=== PATIENT | female | born 1935 | race Caucasian/White ===

== ENCOUNTER 2020-10-29 14:15 | Inpatient (IN) | payer MEDICARE, OTHER ==
[~2020-10-29] VITALS: Ht 175.3 cm; Wt 50.5 kg
[2020-10-29] MEDS ORDERED: ASCORBIC ACID PO (20:12)
[2020-10-29] MEDS ORDERED: FERROUS FUMARATE PO ×2 (20:12→20:18)
[2020-10-29] MEDS ORDERED: LASIX TAB 20 MG20 MG PO (20:12)
[2020-10-29] MEDS ORDERED: LAMOTRIGINE100 MG PO (20:13)
[2020-10-29] MEDS ORDERED: METOPROLOL SUCC50 MG PO (20:14)
[2020-10-29] MEDS ORDERED: LEVOTHYROXINE25 MC1 PO (20:14)
[2020-10-29] MEDS ORDERED: ONE DAILY MUL400 MCG PO (20:17)
[2020-10-29] MEDS ORDERED: LUTEIN PO (20:18)
[2020-10-29] MEDS ORDERED: VITAMIN C125 MG PO (20:19)
[2020-10-29 22:06] LABS: HEMOGLOBIN 9.9 gm/dl (12.3-15.3); RED BLOOD COUNT 3.13 M/UL (4.00-5.10); WHITE BLOOD COUNT 10.5 K/UL (4.5-11.0)
[2020-10-30 18:59] LABS: HEMOGLOBIN 9.5 gm/dl (12.3-15.3); RED BLOOD COUNT 2.99 M/UL (4.00-5.10)
[2020-10-31 19:57] LABS: HEMOGLOBIN 7.4 gm/dl (12.3-15.3); RED BLOOD COUNT 2.33 M/UL (4.00-5.10); WHITE BLOOD COUNT 9.9 K/UL (4.5-11.0)
[2020-11-01 11:53] LABS: HEMOGLOBIN 7.2 gm/dl (12.3-15.3); RED BLOOD COUNT 2.25 M/UL (4.00-5.10); WHITE BLOOD COUNT 9.3 K/UL (4.5-11.0)
[2020-11-02 05:52] LABS: RED BLOOD COUNT 2.09 M/UL (4.00-5.10); WHITE BLOOD COUNT 8.5 K/UL (4.5-11.0)
[2020-11-02 06:00] LABS: HEMOGLOBIN 6.6 gm/dl (12.3-15.3)
[2020-11-03 07:58] LABS: WHITE BLOOD COUNT 9.5 K/UL (4.5-11.0)
[2020-11-03 08:03] LABS: HEMOGLOBIN 11.5 gm/dl (12.3-15.3); RED BLOOD COUNT 3.9 M/UL (4.00-5.10)
[2020-11-04 03:29] LABS: HEMOGLOBIN 10.1 gm/dl (12.3-15.3); WHITE BLOOD COUNT 8.4 K/UL (4.5-11.0)
[2020-11-04 03:30] LABS: RED BLOOD COUNT 3.4 M/UL (4.00-5.10)
[2020-11-07 04:23] LABS: HEMOGLOBIN 10.2 gm/dl (12.3-15.3); RED BLOOD COUNT 3.31 M/UL (4.00-5.10); WHITE BLOOD COUNT 8.8 K/UL (4.5-11.0)
[2020-11-09 06:01] LABS: HEMOGLOBIN 10.4 gm/dl (12.3-15.3); RED BLOOD COUNT 3.33 M/UL (4.00-5.10); WHITE BLOOD COUNT 8.6 K/UL (4.5-11.0)
[2020-11-10 06:45] LABS: HEMOGLOBIN 11.1 gm/dl (12.3-15.3); RED BLOOD COUNT 3.54 M/UL (4.00-5.10); WHITE BLOOD COUNT 10.3 K/UL (4.5-11.0)
[2020-11-10] MEDS ORDERED: COLACE100 MG PO (13:21)
[2020-11-10] MEDS ORDERED: DIFLUCAN100 MG PO (13:21)
[2020-11-10] MEDS ORDERED: TYLENOL 8 HOUR650 MG PO (13:21)
[2020-11-10] MEDS ORDERED: MYLANTA MAXIMU355 ML PO (13:21)
[2020-11-10] MEDS ORDERED: NORCO 5-325 TA1 EACH PO (13:21)
--- NOTE | 2020-11-10 13:26 | NUR ---
NOTIFIED DR CLAYTON PER DR HITCHCOCK REQUEST, DR CLAYTON STATED THAT HE WANTS YOEL TO REMAIN IN PTS HIP FOR AT LEAST 3 MORE DAYS, DR CABRAL NOTIFIED
== END 2020-11-11 00:30 | DRG 481 ==
LOC: M/S 19:43
PROVIDERS: Internal Medicine; Internal Medicine Infectious Disease; Orthopaedic Surgery; ADMIT Internal Medicine
PROC: 0QSC04Z Reposition Left Lower Femur with Internal Fixation Device, Open Approach (ICD-10-PCS; 2020-10-30)
PROC: 0QS706Z Reposition Left Upper Femur with Intramedullary Internal Fixation Device, Open Approach (ICD-10-PCS; principal; 2020-10-30 13:30)
PROC: 30233H1 Transfusion of Nonautologous Whole Blood into Peripheral Vein, Percutaneous Approach (ICD-10-PCS; 2020-11-02)
DX: S72.142A Displaced intertrochanteric fracture of left femur, initial encounter for closed fracture (principal); G40.802 Other epilepsy, not intractable, without status epilepticus; D62 Acute posthemorrhagic anemia; K52.1 Toxic gastroenteritis and colitis; N17.9 Acute kidney failure, unspecified; J44.0 Chronic obstructive pulmonary disease with (acute) lower respiratory infection; S72.002A Fracture of unspecified part of neck of left femur, initial encounter for closed fracture; S72.402A Unspecified fracture of lower end of left femur, initial encounter for closed fracture; W01.0XXA Fall on same level from slipping, tripping and stumbling without subsequent striking against object, initial encounter; Y92.003 Bedroom of unspecified non-institutional (private) residence as the place of occurrence of the external cause; E03.9 Hypothyroidism, unspecified; Z20.828 Contact with and (suspected) exposure to other viral communicable diseases; I10 Essential (primary) hypertension; K21.9 Gastro-esophageal reflux disease without esophagitis; G62.9 Polyneuropathy, unspecified; Z82.49 Family history of ischemic heart disease and other diseases of the circulatory system; Z83.3 Family history of diabetes mellitus; Z88.1 Allergy status to other antibiotic agents; Z88.5 Allergy status to narcotic agent; Z88.0 Allergy status to penicillin; Z88.2 Allergy status to sulfonamides; Z88.8 Allergy status to other drugs, medicaments and biological substances; Z90.710 Acquired absence of both cervix and uterus; D50.9 Iron deficiency anemia, unspecified; K59.00 Constipation, unspecified; B35.4 Tinea corporis; J44.9 Chronic obstructive pulmonary disease, unspecified; T47.4X5A Adverse effect of other laxatives, initial encounter; Y92.230 Patient room in hospital as the place of occurrence of the external cause; J20.9 Acute bronchitis, unspecified; B37.3 Candidiasis of vulva and vagina; E86.0 Dehydration
CPT/HCPCS: 36415; 36430; 70450; 71045; 72170; 73502; 76000; 80048; 80053; 81001; 82270; 82607; 82728; 82746; 82962; 83540; 83550; 83735; 84100; 84439; 84443; 85025; 85027; 85610; 85730; 86850; 86900; 86901; 86920; 87086; 93005; 94640; 94664; 94760; 97110; 97110-GP-CQ; 97116-GP-CQ; 97162; 97166; 97530; 97530-GP-CQ; A6212; C1713; J0690; J1756; J2001; J2270; J2405; J2704; J2710; J3010; J3370; J7030; J7040; J7050; J7120; P9016; U0002